=== PATIENT | female | born 1945 | race Native Hawaiian/Other Pacific Islander ===

== ENCOUNTER 2017-01-09 20:15 | Emergency (ER) | payer OTHER ==
[~2017-01-09] VITALS: Ht 162.6 cm; Wt 72.6 kg
[~2017-01-09 20:15] MED LIST: ALAVERT10 M2 PO; AMOX875T8 PO; BENZONATATE200 MG PO; CIPRO500 MG PO; CIPRSUS OT; ESTRACE0.5 MG PO; FLUT0.05 NAS; GLUCOSAMINE1500 COM OR; LEVO500T PO; PROBIOTI1 OR; Z-PAK PO
[2017-01-09 20:45] VITALS: BP 131/69; TEMP 98.7
== END 2017-01-09 20:51 | disposition home or self-care (01) ==
LOC: ED 20:15
DX: T18.8XXA Foreign body in other parts of alimentary tract, initial encounter (principal)
CPT/HCPCS: 99283

== ENCOUNTER 2017-02-08 10:59 | Outpatient (CLI) | payer OTHER ==
[2017-02-08 11:25] LABS: POTASSIUM 4.1 mmol/L (3.6-5.2)
== END 2017-02-08 12:00 | disposition home or self-care (01) ==
LOC: LABW 10:59
PROVIDERS: Internal Medicine Cardiovascular Disease
DX: I50.9 Heart failure, unspecified (principal)
CPT/HCPCS: 36415; 80048; 83880

== ENCOUNTER 2017-09-06 10:57 | Outpatient (CLI) | payer OTHER | END 2017-09-06 21:40 | disposition home or self-care (01) | LOC: RAD 10:57 | DX: M54.41 Lumbago with sciatica, right side (principal); G89.29 Other chronic pain ==

== ENCOUNTER 2017-09-08 10:03 | Outpatient (CLI) | payer OTHER | END 2017-09-08 22:14 | disposition home or self-care (01) | LOC: LABW 10:03 | DX: B35.1 Tinea unguium (principal) | CPT/HCPCS: 36415; 84450; 84460 ==

== ENCOUNTER 2017-11-24 08:05 | Outpatient (CLI) | payer OTHER | END 2017-11-24 22:28 | disposition home or self-care (01) | LOC: LABW 08:05 | DX: B35.1 Tinea unguium (principal) | CPT/HCPCS: 36415; 84450; 84460 ==

== ENCOUNTER 2017-12-19 08:30 | Outpatient (CLI) | payer OTHER | END 2017-12-19 19:57 | disposition home or self-care (01) | LOC: MRI 08:30 | DX: M54.16 Radiculopathy, lumbar region (principal) ==

== ENCOUNTER 2018-11-21 15:45 | Outpatient (CLI) | payer OTHER | END 2018-11-21 23:42 | disposition home or self-care (01) | LOC: RAD 15:45 | DX: R05 Cough (principal) ==

== ENCOUNTER 2019-07-15 15:28 | Outpatient (CLI) | payer OTHER | END 2019-07-15 19:21 | disposition home or self-care (01) | LOC: RAD 15:28 | DX: M19.041 Primary osteoarthritis, right hand (principal); M19.042 Primary osteoarthritis, left hand ==

== ENCOUNTER 2020-03-06 08:45 | Outpatient (CLI) | payer OTHER | END 2020-03-06 23:54 | disposition home or self-care (01) | LOC: LABW 08:45 | PROVIDERS: Internal Medicine Cardiovascular Disease | DX: E78.49 Other hyperlipidemia (principal) | CPT/HCPCS: 36415; 80061 ==

== ENCOUNTER 2020-07-27 08:55 | Outpatient (CLI) | payer OTHER | END 2020-07-27 20:43 | disposition home or self-care (01) | LOC: RESP 08:55 | PROVIDERS: ATTEND Internal Medicine Sleep Medicine | DX: R06.09 Other forms of dyspnea (principal) ==

== ENCOUNTER 2020-10-19 16:39 | Outpatient (CLI) | payer OTHER | END 2020-10-19 20:09 | disposition home or self-care (01) | LOC: RAD 16:39 | PROVIDERS: ATTEND Nurse Practitioner Family | DX: R05 Cough (principal) ==

== ENCOUNTER 2020-12-23 08:57 | Outpatient (CLI) | payer OTHER | END 2020-12-23 21:08 | disposition home or self-care (01) | LOC: CT 08:57 | PROVIDERS: ATTEND Internal Medicine | DX: R31.29 Other microscopic hematuria (principal) | CPT/HCPCS: 36415; 82565; 84520; Q9963 ==

== ENCOUNTER 2021-02-19 13:06 | Outpatient (CLI) | payer OTHER | END 2021-02-19 19:57 | disposition home or self-care (01) | LOC: RAD 13:06 | PROVIDERS: ATTEND Nurse Practitioner Family | DX: M25.551 Pain in right hip (principal); R26.89 Other abnormalities of gait and mobility ==

== ENCOUNTER 2021-05-14 13:10 | Outpatient (CLI) | payer OTHER | END 2021-05-14 23:04 | disposition home or self-care (01) | LOC: MRI 13:10 | PROVIDERS: ATTEND Physician Assistant | DX: M76.01 Gluteal tendinitis, right hip (principal) ==

== ENCOUNTER 2021-11-03 11:14 | Outpatient (CLI) | payer OTHER ==
[2021-11-03 11:31] LABS: PLATELET COUNT 341 K/uL (152-353)
== END 2021-11-03 18:56 | disposition home or self-care (01) ==
LOC: LABW 11:14
PROVIDERS: ATTEND Internal Medicine Cardiovascular Disease
DX: I77.6 Arteritis, unspecified (principal); Z79.899 Other long term (current) drug therapy
CPT/HCPCS: 36415; 85027; 85652

== ENCOUNTER 2021-11-16 14:14 | Outpatient (CLI) | payer OTHER | END 2021-11-16 18:54 | disposition home or self-care (01) | LOC: RAD 14:14 | PROVIDERS: ATTEND Nurse Practitioner Family | DX: M79.672 Pain in left foot (principal) ==

== ENCOUNTER 2022-03-04 08:46 | Outpatient (CLI) | payer OTHER ==
[2022-03-04 10:12] LABS: PLATELET COUNT 263 K/uL (152-353)
[2022-03-04 10:45] LABS: POTASSIUM 4.6 mmol/L (3.6-5.2)
== END 2022-03-04 19:29 | disposition home or self-care (01) ==
LOC: LABW 08:46
PROVIDERS: ATTEND Nurse Practitioner Family
DX: I10 Essential (primary) hypertension (principal); R73.03 Prediabetes; E78.5 Hyperlipidemia, unspecified; I25.10 Atherosclerotic heart disease of native coronary artery without angina pectoris; J44.9 Chronic obstructive pulmonary disease, unspecified
CPT/HCPCS: 36415; 80053; 80061; 81002; 82043; 82570; 83036; 84436; 84443; 85027

== ENCOUNTER 2022-03-11 13:05 | Outpatient (CLI) | payer OTHER | END 2022-03-11 19:08 | disposition home or self-care (01) | LOC: MAMMO 13:05 | PROVIDERS: ATTEND Nurse Practitioner Family | DX: Z12.31 Encounter for screening mammogram for malignant neoplasm of breast (principal); Z13.820 Encounter for screening for osteoporosis; N95.8 Other specified menopausal and perimenopausal disorders ==

== ENCOUNTER 2022-09-06 15:31 | Outpatient (CLI) | payer OTHER | END 2022-09-06 19:28 | disposition home or self-care (01) | LOC: RAD 15:31 | PROVIDERS: ATTEND Orthopaedic Surgery | DX: M25.562 Pain in left knee (principal) ==

== ENCOUNTER 2022-11-21 12:07 | Outpatient (CLI) | payer OTHER | END 2022-11-21 19:11 | disposition home or self-care (01) | LOC: RAD 12:07 | PROVIDERS: ATTEND Nurse Practitioner Family | DX: Z01.818 Encounter for other preprocedural examination (principal) ==

== ENCOUNTER 2022-12-05 12:07 | Outpatient (CLI) | payer OTHER | END 2022-12-05 21:56 | disposition home or self-care (01) | LOC: CT 12:07 | PROVIDERS: ATTEND Nurse Practitioner Family | DX: R22.0 Localized swelling, mass and lump, head (principal) | CPT/HCPCS: 36415; 82565; 84520; Q9963 ==

== ENCOUNTER 2023-06-07 12:47 | Outpatient (CLI) | payer OTHER | END 2023-06-07 19:28 | disposition home or self-care (01) | LOC: RAD 12:47 | PROVIDERS: ATTEND Nurse Practitioner Family | DX: R13.12 Dysphagia, oropharyngeal phase (principal) ==